=== PATIENT | male | born 1980 | race Caucasian/White ===

== ENCOUNTER 2018-11-23 16:34 | Emergency (ER) | payer MEDICAID ==
[~2018-11-23] VITALS: Ht 170.2 cm; Wt 81.6 kg
[2018-11-23] MEDS ORDERED: NKM (16:48)
--- NOTE | 2018-11-23 16:51 | NUR ---
ED Nurse Note: Patient walked into ED c/o of palpitation, OMRRIS and diarrhea, claims he drank a red bull last night and 2 pills of Tylenol for molar pain. HR 111 upon arrival. AOx4, other VSS. Will cont to monitor.
[2018-11-23] MEDS ORDERED: Ketorolac 30mg Inj ONE (17:05)
[2018-11-23] MEDS ORDERED: TYLENOL EXTRA500 MG ORAL (17:13)
[2018-11-23] MEDS ORDERED: Ketorolac 30mg Inj IM ONE (17:15)
--- NOTE | 2018-11-23 17:15 | Emergency Room Report ---
History of Present Illness General Chief Complaint: General Complaint Source: Patient Present Illness HPI 37-year-old male patient presents the ER with multiple complaints. Patient complains of heart palpitations and headache times 1 day. Reports symptoms began at the same time. Denies worse headache of life. 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 Denies vision changes. Reports one episode of vomiting earlier today, states has been able to tolerate p.o. foods and food since that time. Denies drinking or drug use. States not take any medication for relief of symptoms, states he drank a red bull energy drink prior to the onset of symptoms. Denies history of heart attack or stroke. Denies history of asthma. Denies difficulty breathing. Reports chest pain during this time. Denies history of heart disease. Reports pain is reproducible. Denies history of diabetes. Denies other aggravating or relieving factors. Denies recent travel. Denies diarrhea. Denies hematemesis or coffee-ground emesis. Patient resting comfortably and smiling and laughing during patient interview. Allergies: Coded Allergies: No Known Allergies (Unverified , 11/23/18) Patient History Past Medical History: see triage record Reviewed Nursing Documentation: PMH: Agreed; PSxH: Agreed Nursing Documentation-PMH Past Medical History: No History, Except For Review of Systems All Other Systems: negative except mentioned in HPI Physical Exam Vital Signs Date Time Temp Pulse Resp B/P (MAP) Pulse Ox O2 Delivery O2 Flow Rate FiO2 11/23/18 16:41 99.0 111 18 127/73 96 Room Air Sp02 EP Interpretation: reviewed, normal General Appearance: well appearing, no apparent distress, alert, GCS 15, non- toxic Head: normocephalic, atraumatic Eyes: bilateral eye normal inspection, bilateral eye PERRL ENT: hearing grossly normal, normal pharynx, no angioedema, normal voice, TMs + canals normal, uvula midline, moist mucus membranes Neck: full range of motion, no meningismus, no bony tend Respiratory: lungs clear, normal breath sounds, no rhonchi, no respiratory distress, no accessory muscle use, no wheezing, speaking full sentences Cardiovascular #1: regular rate, rhythm, no edema Musculoskeletal: back normal, digits/nails normal, gait/station normal, normal range of motion, non-tender Neurologic: alert, oriented x3, responsive, 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 Becerra is my supervising Physician whom patient management has been discussed with. Diagnostic Impression: Primary Impression: Headache Additional Impression: Nonspecific chest pain ER Course Pt presents to ED c/o headache and palpitations. DDX considered but are not limited to migraine, cluster MORRIS, tension MORRIS, meningitis, ICH, meningitis, HTN, influenza, costochondritis, pericarditis, CA, CHF, pneumothorax. No fever, no meningismus, low suspicion for meningitis. No focal neuro deficits, cranial nerves intact, denies worse headache of life, does not require CT head at this time. VITAL SIGNS are WNL, patient is afebrile. Patient tachycardic at ER arrival, will continue to monitor. ER COURSE Provided with pain medication. Lungs clear to auscultation, no wheezes, rhonci or rales. patient afebrile. CXR negative for acute disease per the preliminary reading. EKG shows no ST elevation or afib. No cardiac risk factors, denies hx of heart disease, denies smoking, denies diabetes, CXR and EKG negative, low suspicion for cardiac etiology of symptoms, likely MSK in nature. Advised patient to followup with PCP and discuss referral to cardiology for stress testing and further evaluation. Signs and symptoms consistent with tension headache. Patient reports pain improved. Patient is AOx3, neurologically intact, nontoxic appearing, and ambulatory. Patient pulse improved prior to discharge. No longer tachycardic. ER precautions given. DISCHARGE: -Rx provided Tylenol At this time pt is stable for d/c to home. Patient is resting comfortably, in no acute distress, nontoxic appearing, talking and smiling. Will provide with patient care instructions and any necessary prescriptions. Patient to take medication as instructed. Care plan and follow-up instructions provided. Patient questions asked and answered. Patient instructed to follow-up with primary care provider in the next 3 days and discuss further referral with PCP to neurologist. ER precautions given. Patient instructed to return to ER immediately for any new or worsening of symptoms including but not limited to fever, neck stiffness , vision changes, and neurological symptoms. - Please note that this Emergency Department Report was dictated using AWIDasphalt roller operator technology software, occasionally this can lead to erroneous entry secondary to interpretation by the dictation equipment. EKG Diagnostic Results Rate: normal Rhythm: NSR ST Segments: no acute changes ASA given to the pt in ED: No PA Scribe Text Anthony Land PA-C Rhythm Strip Diag. Results EP Interpretation: yes Rate: 97 Rhythm: NSR, no PVC's, no ectopy DREA Scribe Text Anthony Land PA-C Chest X-Ray Diagnostic Results Chest X-Ray Diagnostic Results : Chest X-Ray Ordered: Yes # of Views/Limited/Complete: 1 View Indication: Chest Pain EP Interpretation: Yes PA Xray: Interpretation reviewed, by supervising MD, and agrees with findings. Interpretation: no consolidation, no effusion, no pneumothorax, no acute cardiopulmonary disease Impression: No acute disease DREA Scribe Text Anthony Land PA-C Last Vital Signs Date Time Temp Pulse Resp B/P (MAP) Pulse Ox O2 Delivery O2 Flow Rate FiO2 11/23/18 16:54 111 18 Room Air 11/23/18 16:41 99.0 127/73 96 Status: improved Disposition: HOME, SELF-CARE Condition: Stable Scripts Acetaminophen* (TYLENOL EXTRA STRENGTH*) 500 Mg Tablet 500 MG ORAL Q8H PRN for Prn Headache/Temp > 101, #30 TAB 0 Refills Prov: Epifanio Land 11/23/18 Patient Instructions: Nonspecific Chest Pain, [id number], Tension Headache, [id number] Additional Instructions: Followup with primary care provider in 3 -5 days. Discuss referral to cardiology for cardiac stress testing and further evaluation and treatment at that time. Discuss referral to neurology for headache symptoms. Take Tylenol for headache symptoms. Take medications as directed. Patient questions asked and answered. ER precautions given, patient instructed to return to ER immediately for any new or worsening of symptoms. Epifanio Land Nov 23, 2018 17:15
--- NOTE | 2018-11-23 17:36 | Diagnostic Imaging Report ---
History: PAIN Exam: XR CXR 1 VIEW Comparison: None available FINDINGS: The lungs are clear. The cardiac and mediastinal contours are within limits. The visualized osseous structures appear within limits. IMPRESSION: No evidence of acute disease.
[2018-11-23 17:43] VITALS: BP 131/75
[2018-11-23 17:44] VITALS: BP 127/73
--- NOTE | 2018-11-23 17:44 | NUR ---
ED Nurse Note: Pt is ready to be discharged by ERMD. Discharge paper and prescription given, patient verbalized understanding of discharge instruction. AOx4, VSS. Wristband removed. Pt ambulated out with steady gait with all belongings.
--- NOTE | 2018-11-25 11:11 | Cardiology Report ---
APPROVED REPORT EKG Measurement Heart [id number] Normal sinus rhythm Normal ECG
== END 2018-11-23 17:44 | disposition home or self-care (01) ==
LOC: EMR 17:26
DX: R51 Headache (principal); R07.9 Chest pain, unspecified; R00.2 Palpitations; Z87.891 Personal history of nicotine dependence
CPT/HCPCS: 71045; 93005; 96372; 99283; J1885

== ENCOUNTER 2020-05-09 13:31 | Emergency (ER) | payer MEDICAID ==
[~2020-05-09] VITALS: Ht 160 cm; Wt 112.5 kg
[~2020-05-09 13:31] MED LIST: NKM; RANITIDINE HCL150 MG ORAL; TYLENOL EXTRA500 MG ORAL
--- NOTE | 2020-05-09 13:40 | NUR ---
ED Nurse Note: Pt ambulated to ED from home d/t bilateral leg swelling noted with redness that started since yesterday. Pt is AOx4, calm and cooperative, per pt he placed some rubbing alcohol on the affected site then it started to get "bumps". Placed on bed, VSS, on RA, afebrile on truage, will continue to monitor.
[2020-05-09 13:46] VITALS: BP 153/80
--- NOTE | 2020-05-09 13:59 | Emergency Room Report ---
History of Present Illness General Chief Complaint: Edema Source: Patient Present Illness HPI 39-year-old male with no significant past medical history here complaining rash in bilateral feet that started 1 day ago. 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 When he was at work he realized that his itching and burning in between both spaces. Denies any chemical exposure. Reports that he started scratching them and started feeling swelling and pus drainage. Both feet appear to be cellulitic. Macular lesion noted in webspaces. Rates the pain 3 out of 10 without radiation. Denies any tingling numbness. Has full range of motion. Denies fever and chills, chest pain, shortness of breath , headache and dizziness. Has not taken medication for symptom relief. Patient reports that he applied alcohol to the affected area and the swelling got worse and the burning sensation became worse. Allergies: Coded Allergies: No Known Allergies (Unverified , 11/23/18) COVID-19 Screening Contact w/high risk pt: No Experienced COVID-19 symptoms?: No COVID-19 Testing performed ROBOTICS TECHNOLOGIST: No Patient History Past Medical History: see triage record Past Surgical History: none Pertinent Family History: none Immunizations: UTD Reviewed Nursing Documentation: PMH: Agreed; PSxH: Agreed Nursing Documentation-PMH Past Medical History: No Stated History Review of Systems All Other Systems: negative except mentioned in HPI Physical Exam Vital Signs Date Time Temp Pulse Resp B/P (MAP) Pulse Ox O2 Delivery O2 Flow Rate FiO2 05/09/20 13:35 97.9 70 17 153/80 (104) 97 Room Air Sp02 EP Interpretation: reviewed, normal General Appearance: no apparent distress, alert, GCS 15, non-toxic Head: normocephalic, atraumatic Eyes: bilateral eye normal inspection, bilateral eye PERRL ENT: hearing grossly normal, normal pharynx, no angioedema, normal voice Neck: full range of motion, supple/symm/no masses Respiratory: chest non-tender, lungs clear, normal breath sounds, no respiratory distress, no retraction, speaking full sentences Cardiovascular #1: regular rate, rhythm, no edema Cardiovascular #2: 2+ dorsalis pedis (R), 2+ dorsalis pedis (L) Gastrointestinal: normal bowel sounds, non tender, soft, non-distended, no guarding, no rebound Rectal: deferred Musculoskeletal: back normal, no calf tenderness, swelling - Dorsum side of both feet cellulitic Neurologic: alert, motor strength/tone normal, oriented x3, sensory intact, responsive, speech normal Psychiatric: judgement/insight normal, memory normal, mood/affect normal, no suicidal/homicidal ideation Skin: other - Scabies rash both feet webspaces and cellulitis overlying Lymphatic: no adenopathy Medical Decision Making PA Attestation All my diagnosis and treatment plans were reviewed ad discussed with my supervising physician Dr. Wallace Diagnostic Impression: Primary Impression: Cellulitis of both feet Additional Impression: Scabies ER Course 39-year-old male with no significant past medical history here complaining rash in bilateral feet that started 1 day ago. 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 When he was at work he realized that his itching and burning in between both spaces. Denies any chemical exposure. Reports that he started scratching them and started feeling swelling and pus drainage. Both feet appear to be cellulitic. Macular lesion noted in webspaces. Rates the pain 3 out of 10 without radiation. Denies any tingling numbness. Has full range of motion. Denies fever and chills, chest pain, shortness of breath , headache and dizziness. Has not taken medication for symptom relief. Patient reports that he applied alcohol to the affected area and the swelling got worse and the burning sensation became worse. Ddx considered but are not limited to : Cellulitis, DVT, superficial infection, abscess Vital signs: are WNL, pt. is afebrile H&PE are most consistent with:cellulitis secondary to scabies and patient scratching the lesions ORDERS: Permethrin, prednisone, Keflex ED INTERVENTIONS: Wound clean and dressed DISCHARGE: At this time pt. is stable for d/c to home. Will provide printed patient care instructions, and any necessary prescriptions. Care plan and follow up instructions have been discussed with the patient prior to discharge. Patient take medication as directed, follow primary care provider, avoid wearing the same shoes, if worsening symptoms return to the emergency room Patient denies history of diabetes or any other medical condition, no signs of osteomyelitis noted history started 1 day ago. At this time no x-rays necessary. Patient has good pulses, no calf tenderness noted. Last Vital Signs Date Time Temp Pulse Resp B/P (MAP) Pulse Ox O2 Delivery O2 Flow Rate FiO2 7/11/20 13:46 97.9 17 153/80 97 Room Air 05/09/20 13:46 70 Disposition: HOME, SELF-CARE Condition: Stable Scripts Prednisone* (PREDNISONE*) 20 Mg Tablet 40 MG ORAL DAILY for 5 Days, #10 TAB Prov: Eduardo Quintanilla 05/09/20 Permethrin* (ELIMITE*) 60 Gm Cream..g. 1 APPLIC TOPIC ONCE, #60 GM 0 Refills Apply cream from head to toe; leave on for 8-14 hours before washing off with water; may reapply in 1 week if live mites appear. Prov: Eduardo Quintanilla 05/09/20 Cephalexin* (KEFLEX*) 500 Mg Capsule 500 MG ORAL EVERY 6 HOURS for 7 Days, #28 CAP Prov: Eduardo Quintanilla 05/09/20 Referrals: NOT CHOSEN IPA/MD,REFERRING (PCP) Patient Instructions: Cellulitis, [id number], Scabies, Pediatric Additional Instructions: Take medication as directed, avoid wearing the same shoes, keep washing all of your clothes, if worsening symptoms return to emergency room. 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 Eduardo Quintanilla May 09, 2020 13:59
[2020-05-09] MEDS ORDERED: Bacitracin Oint UD TOPIC ONE ×2 (14:00→14:15)
[2020-05-09] MEDS ORDERED: CEPHALEXIN500 MG ORAL (14:01)
[2020-05-09] MEDS ORDERED: PREDNISONE20 MG ORAL (14:01)
[2020-05-09] MEDS ORDERED: PERMETHRIN60 GM TOPIC (14:01)
[2020-05-09 14:15] VITALS: BP 152/78
--- NOTE | 2020-05-09 14:15 | NUR ---
ER DISCHARGE NOTE: Patient is cleared to be discharged per ERPA, pt is aox4, on room air, with stable vital signs. pt was given dc and prescription instructions, pt was able to verbalize understanding, pt id band removed. pt is able to ambulate with steady gait. pt took all belongings.
== END 2020-05-09 14:15 | disposition home or self-care (01) ==
LOC: EMR 13:48
DX: L03.116 Cellulitis of left lower limb (principal); L03.115 Cellulitis of right lower limb; B86 Scabies
CPT/HCPCS: 99282